=== PATIENT | female | born 1950 | race Caucasian/White ===

== ENCOUNTER 2020-08-11 09:30 | Outpatient (RCR) | payer SELFPAY ==
--- NOTE | 2020-08-02 12:12 | PCCPR ---
PAYMENT RECIEVED FOR [employer] CHARGES. CHECK #[id number]. $42.40.
== END 2020-08-24 13:00 | disposition home or self-care (01) ==
LOC: CHSCPRIII 09:30
PROVIDERS: PCP Family Medicine; Visit Provider Family Medicine
DX: I25.10 Atherosclerotic heart disease of native coronary artery without angina pectoris (principal)
CPT/HCPCS: 99199

== ENCOUNTER 2023-06-18 09:30 | Outpatient (RCR) | payer SELFPAY | END 2023-06-20 08:14 | disposition home or self-care (01) | LOC: CHSCPRIII 09:30 | PROVIDERS: PCP Family Medicine; Visit Provider Family Medicine | DX: Z95.5 Presence of coronary angioplasty implant and graft (principal); I25.10 Atherosclerotic heart disease of native coronary artery without angina pectoris | CPT/HCPCS: 99199 ==